=== PATIENT | male | born 1980 | race Caucasian/White ===

== ENCOUNTER 2018-05-09 19:14 | Emergency (ER) | payer SELFPAY ==
[~2018-05-09] VITALS: Ht 185.4 cm; Wt 100.4 kg
[2018-05-09] MEDS ORDERED: HYDROcodone/APAP 5/325 TABLET PO ONE (20:00)
[2018-05-09] MEDS ORDERED: KETOROLAC 30 MG/1 ML IM ONE (20:00)
[2018-05-09] MEDS ORDERED: HYDROcodone/APAP 5/325 TABLET ONE (20:03)
[2018-05-09] MEDS ORDERED: KETOROLAC 30 MG/1 ML ONE (20:03)
[2018-05-09] MEDS ORDERED: PROPOFOL 10 MG/ML, 20ML ONE (20:04)
[2018-05-09 22:42] VITALS: BP 130/90
== END 2018-05-09 22:48 | disposition home or self-care (01) ==
LOC: ED 22:29
DX: M54.2 Cervicalgia (principal); M25.561 Pain in right knee; M79.671 Pain in right foot; V89.0XXA Person injured in unspecified motor-vehicle accident, nontraffic, initial encounter; Y93.89 Activity, other specified; Y99.8 Other external cause status; Y92.89 Other specified places as the place of occurrence of the external cause
CPT/HCPCS: 96372; 99283; J1885

== ENCOUNTER 2018-05-26 23:13 | Emergency (ER) | payer SELFPAY ==
[~2018-05-26] VITALS: Ht 185.4 cm; Wt 93.3 kg
[2018-05-26 23:14] VITALS: BP 138/84
[2018-05-27] MEDS ORDERED: CLINDAMYCIN PMX 600MG/50ML 50 ML IVPB ONE
[2018-05-27] MEDS ORDERED: SODIUM CHLORIDE FLUSH 10ML SYR IVF ONE
[2018-05-27 00:23] LABS: EOSINOPHILS % (AUTO) 2 % (1-7); MD NO; MEAN PLATELET VOLUME 8.1 fL (7.4-10.4); RED BLOOD COUNT 5.01 x10^6/uL (4.38-5.82)
[2018-05-27 00:28] LABS: BASOPHILS # (AUTO) 0.07 x10^3/uL (0-0.1); BASOPHILS % (AUTO) 1 % (0-1); EOSINOPHILS # (AUTO) 0.25 x10^3/uL (0-0.4); LYMPHOCYTES # (AUTO) 2.29 x10^3/uL (1-3.4); LYMPHOCYTES % (AUTO) 15 % (22-44); MEAN CORPUSCULAR HEMOGLOBIN 30.4 pg (27.5-34.5); MEAN CORPUSCULAR HGB CONC 34.4 g/dL (33.2-36.2); MEAN CORPUSCULAR VOLUME 88.3 fL (81-97); MONOCYTES # (AUTO) 1.29 x10^3/uL (0.2-0.8); MONOCYTES % (AUTO) 9 % (2-9); NEUTROPHILS # (AUTO) 11.17 x10^3/uL (1.8-6.8); NEUTROPHILS % (AUTO) 74 % (42-75); PLATELET COUNT 245 x10^3/uL (130-400); RED CELL DISTRIBUTION WIDTH 13.9 % (9.4-14.8)
[2018-05-27] MEDS ORDERED: CLINDAMYCIN PMX 600MG/50ML 50 ML ONE (00:35)
[2018-05-27 00:37] LABS: ANION GAP 8 mmol/L (5-15); CALCIUM 8.3 mg/dL (8.5-10.1); CHLORIDE 110 mmol/L (98-107); CREATININE 1.03 mg/dL (0.7-1.3)
== END 2018-05-27 01:59 | disposition home or self-care (01) ==
LOC: ED 23:48
DX: L03.115 Cellulitis of right lower limb (principal)
CPT/HCPCS: 36415; 80048; 82040; 85025; 96365

== ENCOUNTER 2018-12-23 02:57 | Emergency (ER) | payer MEDICAID ==
[~2018-12-23] VITALS: Ht 185.4 cm; Wt 91.1 kg
[2018-12-23 03:00] VITALS: BP 134/88
[2018-12-23] MEDS ORDERED: ACETAMINOPHEN 500 MG TABLET ONE (03:28)
[2018-12-23] MEDS ORDERED: ACETAMINOPHEN 500 MG TABLET PO ONE (03:30)
== END 2018-12-23 03:41 | disposition home or self-care (01) ==
LOC: ED 03:23
DX: K64.4 Residual hemorrhoidal skin tags (principal); F17.200 Nicotine dependence, unspecified, uncomplicated
CPT/HCPCS: 99283